=== PATIENT | male | born 1945 | race Native Hawaiian/Other Pacific Islander ===

== ENCOUNTER 2017-09-18 12:04 | Outpatient (CLI) | payer OTHER | END 2017-09-18 19:32 | disposition home or self-care (01) | LOC: RAD 12:04 | DX: C78.00 Secondary malignant neoplasm of unspecified lung (principal) ==

== ENCOUNTER 2017-09-24 09:08 | Outpatient (CLI) | payer OTHER | END 2017-09-24 10:10 | disposition home or self-care (01) | LOC: RESP 09:08 | DX: R06.02 Shortness of breath (principal) | CPT/HCPCS: 94664 ==

== ENCOUNTER 2018-04-15 02:18 | Emergency (ER) | payer OTHER ==
[~2018-04-15] VITALS: Ht 172.7 cm; Wt 63.5 kg
== END 2018-04-15 04:30 | disposition expired ==
LOC: ED 02:18
DX: I46.9 Cardiac arrest, cause unspecified (principal)
CPT/HCPCS: 99282; 99291